=== PATIENT | female | born 1955 | race Caucasian/White ===

== ENCOUNTER 2017-02-20 17:49 | Emergency (ER) | payer MEDICARE, OTHER ==
[~2017-02-20] VITALS: Ht 162.6 cm; Wt 92.0 kg
[~2017-02-20 17:49] MED LIST: Byetta SQ; DEPA250T2 PO; DEPA500T2 OR; ENAL20TA OR; FLAG500T PO; METF750T OR; PAXI40TA OR; PLAV75TA2 OR; POTA20TA OR; SING10TA31 OR; SYNT112T OR; VENTAER INH; VYTO10TA5 OR; indapamide PO
[2017-02-20] MEDS ORDERED: INSUDET SC ×2 (18:15→21:25)
[2017-02-20] MEDS ORDERED: LABETALOL HCL 100 MG/20 ML VIAL IV STA (19:23)
[2017-02-20 19:31] LABS: BASO # 0.2 K/mm3 (0.0-0.2); BASO % 1.3 % (0.0-1.0); EOS # 0.2 K/mm3 (0.0-0.50); EOS % 2.1 % (0.0-3.0); LARGE UNSTAINED CELL # 0.2 K/mm3 (0.0-0.4); LARGE UNSTAINED CELL % 1.9 % (0.0-4.0); LYMPH # 4.2 K/mm3 (1.5-4.5); LYMPH % 35.5 % (24.0-44.0); MEAN CORPUSCULAR HEMOGLOBIN 29.9 pg (27.0-33.0); MEAN CORPUSCULAR HGB CONC 34.7 g/dl (32.0-36.5); MEAN CORPUSCULAR VOLUME 86.3 fl (80.0-96.0); MONO # 0.7 K/mm3 (0.0-0.8); MONO % 5.5 % (0.0-5.0); NEUTROPHILS # 6.4 K/mm3 (1.8-7.7); NEUTROPHILS % 53.8 % (36.0-66.0); PLATELET COUNT, AUTOMATED 320 k/mm3 (150-450); RED CELL DISTRIBUTION WIDTH 13.2 % (11.5-14.5); WHITE BLOOD COUNT 11.9 K/mm3 (4.0-10.0)
[2017-02-20 19:42] LABS: ANION GAP 7 MEQ/L (8-16); BLOOD UREA NITROGEN 8 MG/DL (7-18); CALCIUM LEVEL 8.8 MG/DL (8.8-10.2); CARBON DIOXIDE LEVEL 28 MEQ/L (21-32); CHLORIDE LEVEL 98 MEQ/L (98-107); CREATININE FOR GFR 0.68 MG/DL (0.55-1.02); GLOMERULAR FILTRATION RATE > 60.0 (>45); GLUCOSE, FASTING 167 MG/DL (80-110); POTASSIUM SERUM 3.8 MEQ/L (3.5-5.1); SODIUM LEVEL 133 MEQ/L (136-145)
--- NOTE | 2017-02-20 20:50 | REPUSA ---
CLINICAL HISTORY: Headache. TECHNIQUE: Multiple axial CT images were obtained through the brain without IV contrast material. COMMENTS: There is normal configuration of sella turcica. There are no intra or extra-axial collections. There is no mass effect or midline shift. There is no evidence of hematoma formation. No hydrocephalus is p resent. The ventricles are symmetrical. No abnormal calcifications are present. There is diffuse age-appropriate cerebellar and cerebral atrophy with proportionally dilated ventricl es and cortical sulci. Note is made of all left frontoparietal encephalomalacia compatible with old infarct. There are bilateral periventricular and subcortical white matter hypolucencies compatible with chroni c microvascular disease. Otherwise, no significant focal abnormalities are seen either in the posterior fossa or supratentoria l compartment. IMPRESSION: 1. Age-appropriate cerebellar and cerebral atrophy. 2. Chronic microvascular disease. 3 Note is made of all left frontoparietal encephalomalacia compatible with old infarct. 4. No evidence of acute intracranial pathology. Thank you for your kind referral of this patient.
[2017-02-20] MEDS ORDERED: DEPA250T2 PO (21:25)
[2017-02-20] MEDS ORDERED: METO1TAB32 PO (21:26)
[2017-02-20 22:42] VITALS: BP 150/65
[2017-02-20] MEDS ORDERED: METOPROLOL TART 25 MG TABLET PO ONE (23:00)
--- NOTE | 2017-02-21 09:07 | REP ---
LEFT FOREARM, TWO VIEWS: There is no evidence of an acute fracture, dislocation or intrinsic bone disease. IMPRESSION: No fracture or dislocation. Signed by Aba Waller MD 02/21/2017 08:16 P
--- NOTE | 2017-02-22 09:05 | ECGEPIP ---
Stationary ECG Study [facility] - ED Test Date: 2017-02-20 Pat Name: KAVYA BROWNING Department: Room: - Gender: F Home Health Aide: tk : 1955 Requested By: FABIAN Hairston Order Number: [id number] Reading MD: Sophy Knight Measurements Intervals [place] Rate: 70 P: 24 MD: 148 QRS: 6 QRSD: 81 T: 54 QT: 398 QTc: 429 Interpretive Statements SINUS RHYTHM Left ventricular hypertrophy SIMILAR 07/03/16 Electronically Signed On 02-22-2017 9:05:51 EDT by Sophy Knight
== END 2017-02-20 22:53 | disposition home or self-care (01) ==
LOC: M ED 19:01
DX: S50.12XA Contusion of left forearm, initial encounter (principal); W23.1XXA Caught, crushed, jammed, or pinched between stationary objects, initial encounter; Y92.89 Other specified places as the place of occurrence of the external cause; Y93.89 Activity, other specified; R20.2 Paresthesia of skin; I67.9 Cerebrovascular disease, unspecified; E11.9 Type 2 diabetes mellitus without complications; I10 Essential (primary) hypertension; G40.909 Epilepsy, unspecified, not intractable, without status epilepticus; F17.200 Nicotine dependence, unspecified, uncomplicated; Z79.4 Long term (current) use of insulin; Z79.899 Other long term (current) drug therapy; Z88.8 Allergy status to other drugs, medicaments and biological substances; Z91.041 Radiographic dye allergy status

== ENCOUNTER → 2017-03-17 | Outpatient (CLI) | payer MEDICARE, OTHER ==
[~2017-03-17] MED LIST changes: +INSUDET SC; +METO1TAB32 PO
--- NOTE | 2017-03-17 15:44 | REP ---
MR BRAIN WITHOUT CONTRAST: HISTORY: Nerve palsy. COMPARISON: 10/27/2012. An area of increased signal intensity on T2-weighted images is present in the left temporal and parietal lobes. There is dilatation of the overlying cortical sulci. This represents an old infarction. A small area of increased signal intensity on T2-weighted images is present in the left cerebellum. This represents and old lacunar infarction. Areas of increased signal intensity on T2-weighted images are present in the periventricular and subcortical white matter. This represents small vessel ischemic disease. There is no intraparenchymal, acute infarct, mass or midline shift. The ventricular system and cortical sulci are dilated consistent with minimal volume loss. There is no extracerebral collection. Mucosal thickening is present in the left maxillary sinus. IMPRESSION: 1. 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 2. 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 3. Small vessel ischemic disease. 4. Minimal volume loss. Signed by Nathan Yoder MD 03/17/2017 03:52 P
--- NOTE | 2017-03-17 15:45 | REP ---
MRI ORBITS WITHOUT CONTRAST: HISTORY: Nerve palsy. The globes, optic nerves and rectus muscles are normal in appearance. There is no orbital lesion. Minimal mucosal thickening is present in the left maxillary sinus. Increased signal intensity on T2-weighted images is present in the left temporal and parietal lobes. This represents an old infarction. IMPRESSION: There is no orbital lesion. Signed by Nathan Yoder MD 03/17/2017 03:52 P
== END ==
LOC: M RAD 14:04
PROVIDERS: ATTEND Optometrist
DX: I61.0 Nontraumatic intracerebral hemorrhage in hemisphere, subcortical (principal); I63.9 Cerebral infarction, unspecified; I67.9 Cerebrovascular disease, unspecified; H49.20 Sixth [abducent] nerve palsy, unspecified eye

== ENCOUNTER 2017-11-30 16:03 | Inpatient (IN) | payer MEDICARE, OTHER ==
[2017-11-30 17:03] LABS: BASO # 0.1 10^3/uL (0.0-0.2); BASO % 0.9 % (0.0-1.0); EOS # 0.5 10^3/uL (0.0-0.50); EOS % 4.6 % (0.0-3.0); HEMATOCRIT 39.8 % (36.0-47.0); HEMOGLOBIN 13.5 g/dl (12.0-16.0); IMMATURE GRANULOCYTE % 0.5 % (0-3.0); LYMPH # 4.3 10^3/uL (1.5-4.5); LYMPH % 38.3 % (24.0-44.0); MEAN CORPUSCULAR HEMOGLOBIN 28.3 pg (27.0-33.0); MEAN CORPUSCULAR HGB CONC 33.9 g/dl (32.0-36.5); MEAN CORPUSCULAR VOLUME 83.4 fl (80.0-96.0); MONO # 0.7 10^3/uL (0.0-0.8); MONO % 5.9 % (0.0-5.0); NEUTROPHILS # 5.5 10^3/uL (1.8-7.7); NEUTROPHILS % 49.8 % (36.0-66.0); PLATELET COUNT, AUTOMATED 329 10^3/uL (150-450); RED BLOOD COUNT 4.77 10^6/uL (4.00-5.40); RED CELL DISTRIBUTION WIDTH 13.4 % (11.5-14.5); WHITE BLOOD COUNT 11.1 10^3/uL (4.0-10.0)
[2017-11-30 17:14] LABS: INR 0.95; PROTHROMBIN TIME 12.8 SECONDS (12.4-14.5)
[2017-11-30 17:15] LABS: PARTIAL THROMBOPLASTIN TIME 26.4 SECONDS (26.8-37.9)
[2017-11-30 17:36] LABS: ANION GAP 7 MEQ/L (8-16); BLOOD UREA NITROGEN 10 MG/DL (7-18); CALCIUM LEVEL 8.8 MG/DL (8.8-10.2); CARBON DIOXIDE LEVEL 27 MEQ/L (21-32); CHLORIDE LEVEL 101 MEQ/L (98-107); CK-MB VALUE MASS 2.1 NG/ML (<3.6); CPK CREATINE PHOSPHOKINASE 131 U/L (26-192); CREATININE FOR GFR 0.63 MG/DL (0.55-1.30); GLOMERULAR FILTRATION RATE > 60.0 (>45); GLUCOSE, FASTING 158 MG/DL (70-100); POTASSIUM SERUM 3.9 MEQ/L (3.5-5.1); SODIUM LEVEL 135 MEQ/L (136-145); TROPONIN I < 0.02 NG/ML (< 0.10)
[2017-11-30] MEDS: hydrALAZINE INJ 20 MG/ML VIAL IV ×2 (17:43→23:53)
[2017-11-30] MEDS: ASPIRIN 325 MG TAB PO (17:43)
[2017-11-30] MEDS: FIORICET TAB PO (18:05)
[2017-11-30] MEDS: POLYVINYL ALCOHOL OPHTH SOLN 15 ML(LIQUITEARS) OD (21:00)
[2017-11-30] MEDS: HumaLOG INSULIN (NovoLOG) PER UNIT SC (21:00)
[2017-11-30] MEDS ORDERED: ACETAMINOPHEN 650MG ER TAB (TYLENOL ARTHRITIS) PO (21:45)
[2017-11-30] MEDS ORDERED: DEXTROSE 50% 50 ML SYRINGE IV (21:45)
[2017-11-30] MEDS ORDERED: zolPIDEM TARTRATE 10MG TAB PO (21:45)
[2017-11-30] MEDS ORDERED: ALBUTEROL 90 MCG/ACT 8GM HFA INHALER INH (21:45)
[2017-11-30] MEDS ORDERED: GLUCOSE 4 GM CHEW TABLET PO (21:45)
[2017-11-30] MEDS ORDERED: GLUCAGON FOR INJ 1 MG VIAL (J1610) SC (21:45)
[2017-11-30 22:09] LABS: BEDSIDE GLUCOSE 160 MG/DL (80-115)
[2017-11-30] MEDS: LEVEMIR (INSULIN DETEMIR) 1 UNITS/0.01ML SC (22:13)
[2017-11-30] MEDS: HEPARIN SOD (PORCINE) 5000 UNITS/ML VIAL SC (22:15)
[2017-11-30] MEDS: SIMVASTATIN 20 MG TAB PO (22:16)
[2017-11-30] MEDS: DIVALPROEX 250 MG TAB PO (22:16)
[2017-11-30] MEDS: EZETIMIBE 10 MG TAB (ZETIA) PO (23:17)
[2017-11-30 23:18] LABS: INR 0.98; PROTHROMBIN TIME 13.1 SECONDS (12.4-14.5)
[2017-11-30 23:19] LABS: PARTIAL THROMBOPLASTIN TIME 28.4 SECONDS (26.8-37.9)
[2017-11-30 23:20] LABS: ESTIMATED AVERAGE GLUCOSE 212 MG/DL (60-110)
[2017-11-30 23:24] LABS: C REACTIVE PROTEIN QUANTITATIV < 0.30 MG/DL (0.00-0.30)
[2017-11-30] MEDS: ENALAPRIL MALEATE 10 MG TAB PO (23:24)
[2017-11-30 23:28] LABS: CPK CREATINE PHOSPHOKINASE 146 U/L (26-192); FREE THYROXINE INDEX 3.8 % (1.3-4.8); T UPTAKE 34 % (30-39); THYROXINE (T4) 11.3 UG/DL (4.5-12.0); TROPONIN I < 0.02 NG/ML (< 0.10)
[2017-11-30 23:34] LABS: CK-MB VALUE MASS 2.1 NG/ML (<3.6); MB/CK RELATIVE INDEX 1.43 (< OR =4)
[2017-12-01 00:03] LABS: ERYTHROCYTE SEDIMENTATION RATE 7 mm/hr (0-30)
[2017-12-01] MEDS: KETOROLAC 30 MG/ML VIAL (J1885) IV (01:48)
[2017-12-01 03:45] LABS: HEMATOCRIT 34.6 % (36.0-47.0); HEMOGLOBIN 11.9 g/dl (12.0-16.0); MEAN CORPUSCULAR HEMOGLOBIN 28.8 pg (27.0-33.0); MEAN CORPUSCULAR HGB CONC 34.4 g/dl (32.0-36.5); MEAN CORPUSCULAR VOLUME 83.8 fl (80.0-96.0); PLATELET COUNT, AUTOMATED 253 10^3/uL (150-450); RED BLOOD COUNT 4.13 10^6/uL (4.00-5.40); RED CELL DISTRIBUTION WIDTH 13.4 % (11.5-14.5); WHITE BLOOD COUNT 10.1 10^3/uL (4.0-10.0)
[2017-12-01 04:13] LABS: ALKALINE PHOSPHATASE 53 U/L (45-117); ALT/SGPT 71 U/L (12-78); ANION GAP 8 MEQ/L (8-16); AST/SGOT 46 U/L (7-37); BILIRUBIN,TOTAL 0.3 MG/DL (0.2-1.0); BLOOD UREA NITROGEN 12 MG/DL (7-18); CALCIUM LEVEL 8.4 MG/DL (8.8-10.2); CARBON DIOXIDE LEVEL 28 MEQ/L (21-32); CHLORIDE LEVEL 101 MEQ/L (98-107); CHOLESTEROL LEVEL 146 MG/DL (<200); CHOLESTEROL RISK RATIO 4.424 (<5); CPK CREATINE PHOSPHOKINASE 149 U/L (26-192); CREATININE FOR GFR 0.69 MG/DL (0.55-1.30); GLOMERULAR FILTRATION RATE > 60.0 (>45); GLUCOSE, FASTING 218 MG/DL (70-100); HDL CHOLESTEROL 33 MG/DL (>40); MB/CK RELATIVE INDEX 1.34 (< OR =4); NON-HDL-C 113 MG/DL; POTASSIUM SERUM 3.8 MEQ/L (3.5-5.1); SODIUM LEVEL 137 MEQ/L (136-145); TRIGLYCERIDES LEVEL 240 MG/DL (<150); TROPONIN I < 0.02 NG/ML (< 0.10)
[2017-12-01] MEDS: hydrALAZINE INJ 20 MG/ML VIAL IV ×3 (06:00→17:49)
[2017-12-01] MEDS: LEVOTHYROXINE 125MCG TABLET (0.125MG) PO (07:57)
[2017-12-01] MEDS ORDERED: LEVOTHYROXINE 125MCG TABLET (0.125MG) PO (09:00)
[2017-12-01] MEDS ORDERED: ENALAPRIL MALEATE 10 MG TAB PO (09:00)
[2017-12-01] MEDS ORDERED: METOPROLOL SUCC *XL* 25MG TAB (TopROL *XL*) PO (09:00)
[2017-12-01] MEDS: HumaLOG INSULIN (NovoLOG) PER UNIT SC ×4 (09:05→20:17)
[2017-12-01] MEDS: HEPARIN SOD (PORCINE) 5000 UNITS/ML VIAL SC ×2 (09:06→20:22)
[2017-12-01] MEDS: METOPROLOL SUCC *XL* 25MG TAB (TopROL *XL*) PO ×2 (09:06→20:11)
[2017-12-01] MEDS: LEVEMIR (INSULIN DETEMIR) 1 UNITS/0.01ML SC ×2 (09:06→20:23)
[2017-12-01] MEDS: MONTELUKAST 10 MG TAB PO (09:06)
[2017-12-01] MEDS: DIVALPROEX 250 MG TAB PO ×2 (09:07→20:08)
[2017-12-01] MEDS: CLOPIDOGREL 75 MG TAB PO (09:07)
[2017-12-01] MEDS: ENALAPRIL MALEATE 10 MG TAB PO ×2 (09:07→20:11)
[2017-12-01] MEDS: PARoxetine 20 MG TAB PO (09:07)
[2017-12-01] MEDS: POLYVINYL ALCOHOL OPHTH SOLN 15 ML(LIQUITEARS) OD ×4 (09:08→20:14)
[2017-12-01 12:46] LABS: BEDSIDE GLUCOSE 174 MG/DL (80-115)
[2017-12-01 12:46] LABS: BEDSIDE GLUCOSE 216 MG/DL (80-115)
[2017-12-01] MEDS: ACETAMINOPHEN 650MG ER TAB (TYLENOL ARTHRITIS) PO (16:04)
[2017-12-01 17:26] LABS: BEDSIDE GLUCOSE 170 MG/DL (80-115)
[2017-12-01] MEDS: SIMVASTATIN 20 MG TAB PO (17:40)
[2017-12-01] MEDS: predniSONE 20 MG TAB PO (20:07)
[2017-12-01] MEDS: valACYclovir HCL 500 MG TAB PO (20:08)
[2017-12-01] MEDS: EZETIMIBE 10 MG TAB (ZETIA) PO (20:14)
[2017-12-01 20:35] LABS: BEDSIDE GLUCOSE 175 MG/DL (80-115)
[2017-12-06 10:25] LABS: PTT LUPUS TYPE ANTICOAG SCREEN 0.9 (0-1.2)
== END 2017-12-01 21:09 | disposition home or self-care (01) | DRG 74 ==
LOC: M ED 21:09 → M ED INP 21:45 → M ED 16:03 → M ED INP 21:45
DX: G51.0 Bell's palsy (principal); G40.509 Epileptic seizures related to external causes, not intractable, without status epilepticus; I16.0 Hypertensive urgency; E11.9 Type 2 diabetes mellitus without complications; Z79.4 Long term (current) use of insulin; Z86.73 Personal history of transient ischemic attack (TIA), and cerebral infarction without residual deficits; F41.9 Anxiety disorder, unspecified; F32.9 Major depressive disorder, single episode, unspecified; E03.9 Hypothyroidism, unspecified; J45.909 Unspecified asthma, uncomplicated; E66.9 Obesity, unspecified; Z79.899 Other long term (current) drug therapy; Z88.5 Allergy status to narcotic agent; Z91.041 Radiographic dye allergy status; Z88.8 Allergy status to other drugs, medicaments and biological substances; I25.10 Atherosclerotic heart disease of native coronary artery without angina pectoris; F17.210 Nicotine dependence, cigarettes, uncomplicated

== ENCOUNTER 2019-11-17 22:55 | Emergency (ER) | payer MEDICARE, OTHER ==
[~2019-11-17 22:55] MED LIST changes: +AMBI10TA PO; +ASPI325T57 PO; +Artificial Tears OD; +DIVA250T67 PO; -ENAL20TA OR; +ENAL20TA PO; +EZET1TAB4 PO; +KLOR20TA42 PO; +LEVO125T41 PO; +METF500T13 PO; -PAXI40TA OR; +PAXI40TA PO; +PRED50TA PO; -SING10TA31 OR; +SING10TA31 PO; +TYLE650T35 PO; +VALA1TAB5 PO
--- NOTE | 2019-11-18 00:31 | REPVR ---
PROCEDURE INFORMATION: Exam: CT Head Without Contrast Exam date and time: 11/17/2019 12:11 AM Age: 64 years old Clinical indication: Altered mental status/memory loss TECHNIQUE: Imaging protocol: Computed tomography of the head without contrast. Radiation optimization: All CT scans at this facility use at least one of these dose optimization techniques: automated exposure control; mA and/or kV adjustment per patient size (includes targeted exams where dose is matched to clinical indication); or iterative reconstruction. COMPARISON: CT Head without contrast 11/30/2017 4:28 PM FINDINGS: Brain: Encephalomalacia in the left frontal parietal lobe. No acute mass effect. No midline shift. No acute intracranial hemorrhage. Ventricles: Normal. No ventriculomegaly. Bones/joints: Unremarkable. No acute fracture. Sinuses: Visualized sinuses are unremarkable. No fluid levels. Mastoid air cells: Visualized mastoid air cells are well aerated. Soft tissues: Unremarkable. IMPRESSION: 1. Encephalomalacia in the left frontal parietal lobe. 2. No acute findings. Electronically signed by: Nayana Kang On 11/18/2019 00:30:37 AM
--- NOTE | 2019-11-18 00:31 | REPVR ---
PROCEDURE INFORMATION: Exam: CT Cervical Spine Without Contrast Exam date and time: 11/17/2019 12:11 AM Age: 64 years old Clinical indication: Other: AMS; Additional info: Altered mental status TECHNIQUE: Imaging protocol: Computed tomography images of the cervical spine without contrast. Radiation optimization: All CT scans at this facility use at least one of these dose optimization techniques: automated exposure control; mA and/or kV adjustment per patient size (includes targeted exams where dose is matched to clinical indication); or iterative reconstruction. COMPARISON: No relevant prior studies available. FINDINGS: Limitations: Limited evaluation of the spinal canal. Vertebrae: No acute fracture. No subluxation. Mild kyphosis of the spine. Diffuse facet arthropathy. Multilevel mild anterior marginal osteophytes. C1-C2: Joint space narrowing and marginal osteophytes changes at the atlantoodontoid joint. C2-C3: No disc herniation. No spinal canal stenosis. C3-C4: Limited evaluation of the spinal canal. C4-C5: Suspect 4 mm disc osteophyte complex. C5-C6: Limited evaluation of the spinal canal. C6-C7: Limited evaluation of the spinal canal. Moderate right neural foraminal narrowing. Moderate left neural foraminal narrowing. C7-T1: Limited evaluation of the spinal canal. Severe right neural foraminal narrowing. Mild left neural foraminal narrowing. Soft tissues: Unremarkable. Vasculature: Mild atherosclerotic disease at the origin of the internal carotid arteries bilaterally. Lungs: Lung apices are normal. IMPRESSION: 1. Limited evaluation. 2. No acute fracture. 3. Degenerative changes as described. Electronically signed by: Nayana Kang On 11/18/2019 00:30:44 AM
[2019-11-18] MEDS ORDERED: VALPROATE SOD INJ 500 MG in D5W 50 ML IV ONE (01:15)
[2019-11-18 01:32] LABS: BASO # 0.1 10^3/uL (0.0-0.2); BASO % 0.8 % (0.0-1.0); EOS # 0.2 10^3/uL (0.0-0.5); EOS % 1.3 % (0.0-3.0); HEMATOCRIT 41.8 % (36.0-47.0); LYMPH # 3.6 10^3/uL (1.5-5.0); LYMPH % 25.8 % (24.0-44.0); MEAN CORPUSCULAR HEMOGLOBIN 28.7 pg (27.0-33.0); MEAN CORPUSCULAR HGB CONC 33.5 g/dl (32.0-36.5); MEAN CORPUSCULAR VOLUME 85.7 fl (80.0-96.0); NEUTROPHILS # 9.1 10^3/uL (1.5-8.5); NEUTROPHILS % 64.2 % (36.0-66.0); PLATELET COUNT, AUTOMATED 379 10^3/uL (150-450); RED BLOOD COUNT 4.88 10^6/uL (4.00-5.40); WHITE BLOOD COUNT 14.1 10^3/uL (4.0-10.0)
[2019-11-18 01:59] LABS: AMPHETAMINES LEVEL URINE NEGATIVE (NEGATIVE); BARBITURATES URINE NEGATIVE (NEGATIVE); BENZODIAZEPINES URINE NEGATIVE (NEGATIVE); CANNABINOIDS URINE POSITIVE (NEGATIVE); COCAINE METABOLITE URINE NEGATIVE (NEGATIVE); METHADONE URINE NEGATIVE (NEGATIVE); OPIATES URINE NEGATIVE (NEGATIVE); PHENCYCLIDINE URINE NEGATIVE (NEGATIVE)
[2019-11-18 02:04] LABS: ACETAMINOPHEN LEVEL < 2.0 UG/ML (10.0-30.0); ALBUMIN 3.6 GM/DL (3.2-5.2); ALT/SGPT 85 U/L (12-78); BILIRUBIN,DIRECT < 0.1 MG/DL (0.0-0.2); BILIRUBIN,TOTAL 0.3 MG/DL (0.2-1.0); BLOOD UREA NITROGEN 8 MG/DL (7-18); CALCIUM LEVEL 8.6 MG/DL (8.8-10.2); CARBON DIOXIDE LEVEL 22 MEQ/L (21-32); CHLORIDE LEVEL 98 MEQ/L (98-107); CK-MB VALUE MASS 3.3 NG/ML (<3.6); CPK CREATINE PHOSPHOKINASE 260 U/L (26-192); CREATININE FOR GFR 0.66 MG/DL (0.55-1.30); ETHYL ALCOHOL (ETHANOL) 0.047 % (0.000-0.010); GLOMERULAR FILTRATION RATE > 60.0 (>45); GLUCOSE, FASTING 215 MG/DL (70-100); MB/CK RELATIVE INDEX 1.27 (< OR =4); POTASSIUM SERUM 4.5 MEQ/L (3.5-5.1); SALICYLATE LEVEL < 1.7 MG/DL (5.0-30.0); SODIUM LEVEL 131 MEQ/L (136-145); THYROID STIMULATING HORMONE 0.837 uIU/ML (0.358-3.740); TOTAL PROTEIN 7.1 GM/DL (6.4-8.2); TROPONIN I < 0.02 NG/ML (< 0.10)
[2019-11-18 02:31] VITALS: BP 155/76
--- NOTE | 2019-11-18 14:45 | ED PDOC ---
Post-Departure Follow-Up dr tila reddy faxed formal report of ct c spine for fu Nico Erwin MD Nov 18, 2019 14:45
--- NOTE | 2019-11-19 07:21 | ECGEPIP ---
[facility] - ED Test Date: 2019-11-18 Pat Name: KAVYA BROWNING Department: Room: - Gender: Female Piece Hand: gianna : 1955 Requested By: FABIAN Hairston Order Number: [id number] Reading MD: Sophy Knight Measurements Intervals [place] Rate: 74 P: 39 [place]: 156 QRS: 21 QRSD: 88 T: 78 QT: 409 QTc: 455 Interpretive Statements SINUS RHYTHM NONSPECIFIC T-WAVE ABNORMALITY INCREASED RATE 11/30/17 Electronically Signed on 11-19-2019 7:20:49 EDT by Sophy Knight
== END 2019-11-18 03:19 | disposition home or self-care (01) ==
LOC: M ED 22:55
DX: G40.909 Epilepsy, unspecified, not intractable, without status epilepticus (principal); G93.89 Other specified disorders of brain; R94.31 Abnormal electrocardiogram [ECG] [EKG]; M25.78 Osteophyte, vertebrae; M48.02 Spinal stenosis, cervical region; Z86.73 Personal history of transient ischemic attack (TIA), and cerebral infarction without residual deficits; F17.210 Nicotine dependence, cigarettes, uncomplicated; Z88.6 Allergy status to analgesic agent; Z91.041 Radiographic dye allergy status; Z79.51 Long term (current) use of inhaled steroids; Z79.899 Other long term (current) drug therapy
CPT/HCPCS: 70450; 72125; 80048; 80076; 80307; 82550; 82553; 83605; 84443; 84484; 85025; 93005; 93041; 94760; 96365; 99285; G0480

== ENCOUNTER 2022-01-07 19:30 | Inpatient (IN) | payer MEDICARE ==
[~2022-01-07] VITALS: Ht 162.6 cm; Wt 90.9 kg
[~2022-01-07 19:30] MED LIST changes: +ACET650T61 PO; -EZET1TAB4 PO; +EZET1TAB96 PO; -KLOR20TA42 PO; +POTA-141 PO; -TYLE650T35 PO
[2022-01-07] MEDS ORDERED: PARO20TA3 (19:59)
[2022-01-07] MEDS ORDERED: POTA-151 (19:59)
[2022-01-07] MEDS ORDERED: TRES1INJ PO (19:59)
[2022-01-07] MEDS ORDERED: PRAV10TA3 (19:59)
[2022-01-07] MEDS ORDERED: VALPROATE SOD INJ 500 MG, VIAL MATE ADAPTER 1 EACH in D5W 50 ML IV ONE (20:15)
[2022-01-07 20:19] LABS: BASO # 0.1 10^3/uL (0.0-0.2); BASO % 0.9 % (0.0-1.0); EOS # 0.4 10^3/uL (0.0-0.5); EOS % 2.9 % (0.0-3.0); HEMATOCRIT 41.6 % (36.0-47.0); HEMOGLOBIN 14.2 g/dl (12.0-15.5); LYMPH # 2.7 10^3/uL (1.5-5.0); LYMPH % 20.8 % (24.0-44.0); MEAN CORPUSCULAR HGB CONC 34.1 g/dl (32.0-36.5); MEAN CORPUSCULAR VOLUME 84.9 fl (80.0-96.0); MONO # 0.8 10^3/uL (0.0-0.8); NEUTROPHILS # 8.9 10^3/uL (1.5-8.5); NEUTROPHILS % 68.7 % (36.0-66.0); WHITE BLOOD COUNT 12.9 10^3/uL (4.0-10.0)
[2022-01-07 20:48] LABS: CK-MB VALUE MASS 1.7 NG/ML (<3.6); MB/CK RELATIVE INDEX 1.02 (< OR =4)
[2022-01-07 20:58] LABS: ACETAMINOPHEN LEVEL < 2.0 UG/ML (10.0-30.0); ALBUMIN 3.9 GM/DL (3.2-5.2); ALT/SGPT 59 U/L (12-78); BILIRUBIN,DIRECT 0.1 MG/DL (0.0-0.2); BILIRUBIN,TOTAL 0.4 MG/DL (0.2-1.0); BLOOD UREA NITROGEN 18 MG/DL (7-18); CALCIUM LEVEL 9.6 MG/DL (8.8-10.2); CARBON DIOXIDE LEVEL 27 MEQ/L (21-32); CHLORIDE LEVEL 99 MEQ/L (98-107); CREATININE FOR GFR 0.87 MG/DL (0.55-1.30); ETHYL ALCOHOL (ETHANOL) < 0.003 % (0.000-0.010); GLOMERULAR FILTRATION RATE > 60.0 (>45); GLUCOSE, FASTING 325 MG/DL (70-100); POTASSIUM SERUM 4.1 MEQ/L (3.5-5.1); SALICYLATE LEVEL < 1.7 MG/DL (5.0-30.0); SODIUM LEVEL 132 MEQ/L (136-145); TOTAL PROTEIN 7.4 GM/DL (6.4-8.2); VALPROIC ACID (DEPAKOTE) < 3.0 UG/ML (50.0-100.0)
[2022-01-07] MEDS ORDERED: METOPROLOL SUCC *XL* 25MG TAB (TopROL *XL*) PO ONE (21:30)
[2022-01-07] MEDS ORDERED: ENALAPRIL MALEATE 10 MG TAB PO ONE (21:30)
[2022-01-07 22:17] LABS: FREE T4 0.94 NG/DL (0.76-1.46)
[2022-01-07 22:56] LABS: CK-MB VALUE MASS 1.8 NG/ML (<3.6); MB/CK RELATIVE INDEX 0.9 (< OR =4)
[2022-01-07 23:01] LABS: RSV AMPLIFICATION NEGATIVE (NEGATIVE)
[2022-01-08] MEDS ORDERED: ACETAMINOPHEN TAB 650MG DOSE (2X325MG) PO PRN (00:35)
[2022-01-08] MEDS ORDERED: LABETALOL 100MG/20ML VIAL IV PRN (01:25)
[2022-01-08] MEDS ORDERED: MONT10TA97 PO (01:53)
[2022-01-08] MEDS ORDERED: PRAV10TA3 PO (01:53)
[2022-01-08] MEDS ORDERED: POLYOPD OU (01:53)
[2022-01-08] MEDS ORDERED: PARO1TAB33 PO (01:53)
[2022-01-08] MEDS ORDERED: ASPI-161 PO (01:53)
[2022-01-08] MEDS ORDERED: ALBU8.5H INH (01:53)
[2022-01-08] MEDS ORDERED: POTA-151 PO (01:53)
[2022-01-08] MEDS ORDERED: ENAL20TA11 PO (01:53)
[2022-01-08] MEDS ORDERED: METO1TAB87 PO (01:53)
[2022-01-08] MEDS ORDERED: HOME MED LIST COMPLETE! XX SCH (01:55)
[2022-01-08] MEDS ORDERED: POLYVINYL ALCOHOL OPHTH SOLN 15 ML(LIQUITEARS) OU PRN (02:20)
[2022-01-08] MEDS ORDERED: ALBUTEROL 90 MCG/ACT 8GM HFA INHALER INH PRN (02:20)
[2022-01-08] MEDS: LEVOTHYROXINE 125MCG TABLET (0.125MG) PO SCH (06:39)
[2022-01-08] MEDS ORDERED: DEXTROSE 50% 50 ML SYRINGE IV PRN (07:20)
[2022-01-08] MEDS ORDERED: GLUCOSE 4GM CHEW TABLET PO PRN (07:20)
[2022-01-08] MEDS ORDERED: GLUCAGON INJ 1MG VIAL SC PRN (07:20)
[2022-01-08 08:27] LABS: HEMATOCRIT 37.5 % (36.0-47.0); HEMOGLOBIN 12.7 g/dl (12.0-15.5); MEAN CORPUSCULAR HEMOGLOBIN 28.5 pg (27.0-33.0); MEAN CORPUSCULAR HGB CONC 33.9 g/dl (32.0-36.5); MEAN CORPUSCULAR VOLUME 84.3 fl (80.0-96.0); PLATELET COUNT, AUTOMATED 376 10^3/uL (150-450); RED BLOOD COUNT 4.45 10^6/uL (4.00-5.40); WHITE BLOOD COUNT 12.8 10^3/uL (4.0-10.0)
[2022-01-08 08:41] LABS: INR 1.05; PROTHROMBIN TIME 14.1 SECONDS (12.7-14.5)
[2022-01-08 08:42] LABS: PARTIAL THROMBOPLASTIN TIME 29.7 SECONDS (25.9-37.0)
[2022-01-08 08:50] LABS: BLOOD UREA NITROGEN 13 MG/DL (7-18); CARBON DIOXIDE LEVEL 27 MEQ/L (21-32); CHLORIDE LEVEL 102 MEQ/L (98-107); GLOMERULAR FILTRATION RATE > 60.0 (>45); GLUCOSE, FASTING 152 MG/DL (70-100); POTASSIUM SERUM 3.5 MEQ/L (3.5-5.1); SODIUM LEVEL 137 MEQ/L (136-145)
[2022-01-08 08:56] LABS: CK-MB VALUE MASS 3.2 NG/ML (<3.6); MB/CK RELATIVE INDEX 1.12 (< OR =4)
[2022-01-08] MEDS: ENALAPRIL MALEATE 10 MG TAB PO SCH (09:00)
[2022-01-08] MEDS: ENOXAPARIN 40MG/0.4ML SYRINGE (J1650 PER 10MG) SC SCH (09:44)
[2022-01-08] MEDS: POTASSIUM CHLORIDE 10MEQ SR TABLET PO SCH ×2 (09:45→21:28)
[2022-01-08] MEDS: PARoxetine 20MG TABLET PO SCH (09:45)
[2022-01-08] MEDS: DIVALPROEX 250 MG TAB PO SCH ×2 (09:45→21:28)
[2022-01-08] MEDS: METOPROLOL TART 25 MG TABLET PO SCH ×2 (09:46→21:29)
[2022-01-08] MEDS: HumaLOG INSULIN (NovoLOG) PER UNIT SC SCH ×3 (09:46→17:26)
[2022-01-08] MEDS: LEVEMIR (INSULIN DETEMIR) 1 UNITS/0.01ML SC SCH ×2 (09:48→21:27)
[2022-01-08 16:19] VITALS: BP 141/67
[2022-01-08 20:00] VITALS: BP 133/68
[2022-01-08] MEDS ORDERED: MONTELUKAST 10 MG TAB PO SCH (21:00)
[2022-01-08] MEDS ORDERED: ASPIRIN 81MG ENTERIC TABLET PO SCH (21:00)
[2022-01-08] MEDS ORDERED: HumaLOG INSULIN (NovoLOG) PER UNIT SC SCH (21:00)
[2022-01-08] MEDS ORDERED: PRAVASTATIN 10 MG TAB PO SCH (21:00)
[2022-01-08 21:29] VITALS: BP 133/68
[2022-01-09] VITALS: BP 160/78
[2022-01-09 04:00] VITALS: BP 163/74
[2022-01-09] MEDS: HumaLOG INSULIN (NovoLOG) PER UNIT SC SCH ×2 (06:15→11:39)
[2022-01-09] MEDS: LEVOTHYROXINE 125MCG TABLET (0.125MG) PO SCH (06:15)
[2022-01-09 06:17] LABS: HEMATOCRIT 38.5 % (36.0-47.0); HEMOGLOBIN 12.9 g/dl (12.0-15.5); MEAN CORPUSCULAR HEMOGLOBIN 28.7 pg (27.0-33.0); MEAN CORPUSCULAR HGB CONC 33.5 g/dl (32.0-36.5); MEAN CORPUSCULAR VOLUME 85.6 fl (80.0-96.0); PLATELET COUNT, AUTOMATED 401 10^3/uL (150-450); WHITE BLOOD COUNT 12.2 10^3/uL (4.0-10.0)
[2022-01-09 06:44] LABS: ALT/SGPT 48 U/L (12-78); BILIRUBIN,TOTAL 0.4 MG/DL (0.2-1.0); BLOOD UREA NITROGEN 13 MG/DL (7-18); CALCIUM LEVEL 9.2 MG/DL (8.8-10.2); CARBON DIOXIDE LEVEL 28 MEQ/L (21-32); CHLORIDE LEVEL 105 MEQ/L (98-107); CREATININE FOR GFR 0.53 MG/DL (0.55-1.30); GLOMERULAR FILTRATION RATE > 60.0 (>45); GLUCOSE, FASTING 144 MG/DL (70-100); POTASSIUM SERUM 4.4 MEQ/L (3.5-5.1); SODIUM LEVEL 139 MEQ/L (136-145); TOTAL PROTEIN 6.2 GM/DL (6.4-8.2)
[2022-01-09 07:39] VITALS: BP 154/68
[2022-01-09] MEDS: POTASSIUM CHLORIDE 10MEQ SR TABLET PO SCH (08:25)
[2022-01-09] MEDS: LEVEMIR (INSULIN DETEMIR) 1 UNITS/0.01ML SC SCH (08:25)
[2022-01-09] MEDS: DIVALPROEX 250 MG TAB PO SCH (08:26)
[2022-01-09] MEDS: ENALAPRIL MALEATE 10 MG TAB PO SCH (08:26)
[2022-01-09] MEDS: METOPROLOL TART 25 MG TABLET PO SCH (08:26)
[2022-01-09] MEDS: PARoxetine 20MG TABLET PO SCH (08:26)
[2022-01-09] MEDS: ENOXAPARIN 40MG/0.4ML SYRINGE (J1650 PER 10MG) SC SCH (08:27)
[2022-01-09 09:17] LABS: VALPROIC ACID (DEPAKOTE) 29.5 UG/ML (50.0-100.0)
[2022-01-09 10:18] LABS: MB/CK RELATIVE INDEX 1.1 (< OR =4)
[2022-01-09] MEDS ORDERED: ENAL20TA11 PO (10:59)
[2022-01-09] MEDS ORDERED: DIVA250T67 PO (10:59)
[2022-01-09] MEDS ORDERED: LEVO137T2 PO (10:59)
[2022-01-09] MEDS ORDERED: VALPROIC ACID 250MG CAP PO ONE (13:00)
[2022-01-10] MEDS ORDERED: ENALAPRIL MALEATE 10 MG TAB PO SCH (09:00)
== END 2022-01-09 12:11 | disposition home or self-care (01) | DRG 101 ==
LOC: EDBD 19:30 → M ED 19:30 → M ED INP 23:55 → ENRESERV 01-08 15:10 → M PCU 01-08 16:16
PROVIDERS: ADMIT Family Medicine; ATTEND Family Medicine
DX: G40.909 Epilepsy, unspecified, not intractable, without status epilepticus (principal); I16.1 Hypertensive emergency; Z86.73 Personal history of transient ischemic attack (TIA), and cerebral infarction without residual deficits; E11.9 Type 2 diabetes mellitus without complications; I10 Essential (primary) hypertension; F32.A Depression, unspecified; F41.9 Anxiety disorder, unspecified; E03.9 Hypothyroidism, unspecified; M19.90 Unspecified osteoarthritis, unspecified site; M06.9 Rheumatoid arthritis, unspecified; Z90.79 Acquired absence of other genital organ(s); E87.6 Hypokalemia; J45.909 Unspecified asthma, uncomplicated; Z20.822 Contact with and (suspected) exposure to COVID-19; Z91.14 Patient's other noncompliance with medication regimen; R41.82 Altered mental status, unspecified; R55 Syncope and collapse; F17.210 Nicotine dependence, cigarettes, uncomplicated; Z79.82 Long term (current) use of aspirin; Z79.4 Long term (current) use of insulin; Z79.899 Other long term (current) drug therapy; Z88.8 Allergy status to other drugs, medicaments and biological substances; Z91.041 Radiographic dye allergy status; D72.829 Elevated white blood cell count, unspecified

== ENCOUNTER → 2022-01-26 | Outpatient (CLI) | payer MEDICARE ==
[~2022-01-26] MED LIST changes: +ALBU8.5H INH; +ASPI-161 PO; +ENAL20TA11 PO; +LEVO137T2 PO; +METO1TAB87 PO; +MONT10TA97 PO; +PARO1TAB33 PO; +PARO20TA3; +POLYOPD OU; +POTA-151; +POTA-151 PO; +PRAV10TA3; +PRAV10TA3 PO; +TRES1INJ PO
[2022-01-26 16:21] LABS: POTASSIUM SERUM 4.4 MEQ/L (3.5-5.1)
== END ==
LOC: M WUC 11:40
PROVIDERS: ATTEND Family Medicine
DX: E87.1 Hypo-osmolality and hyponatremia (principal); E11.9 Type 2 diabetes mellitus without complications; I10 Essential (primary) hypertension

== ENCOUNTER 2023-02-20 21:52 | Emergency (ER) | payer MEDICARE ==
[~2023-02-20] VITALS: Ht 162.6 cm; Wt 95.0 kg
[~2023-02-20 21:52] MED LIST changes: +ARTIDRO4 OU; +ENAL1TAB52 PO; -ENAL20TA11 PO; -POLYOPD OU
[2023-02-20 22:14] LABS: BASO # 0.1 10^3/uL (0.0-0.2); BASO % 0.9 % (0.0-1.0); EOS # 0.3 10^3/uL (0.0-0.5); EOS % 2.1 % (0.0-3.0); HEMATOCRIT 41.5 % (36.0-47.0); LYMPH # 4.4 10^3/uL (1.5-5.0); LYMPH % 31.9 % (24.0-44.0); MEAN CORPUSCULAR HEMOGLOBIN 28.5 pg (27.0-33.0); MEAN CORPUSCULAR HGB CONC 33.7 g/dl (32.0-36.5); MEAN CORPUSCULAR VOLUME 84.3 fl (80.0-96.0); MONO # 0.8 10^3/uL (0.0-0.8); MONO % 5.9 % (2.0-8.0); NEUTROPHILS # 8.1 10^3/uL (1.5-8.5); NEUTROPHILS % 58.7 % (36.0-66.0); PLATELET COUNT, AUTOMATED 403 10^3/uL (150-450); RED BLOOD COUNT 4.92 10^6/uL (4.00-5.40); WHITE BLOOD COUNT 13.8 10^3/uL (4.0-10.0)
[2023-02-20] MEDS ORDERED: ASPIRIN 81MG CHEW TABLET PO ONE (22:20)
[2023-02-20] MEDS: NITROGLYCERIN 0.4MG SUBL TABLET SL PRN ×3 (22:40→23:49)
[2023-02-20 22:45] LABS: D-DIMER QUANT 597.52 ng/ml (<500)
[2023-02-20 22:47] LABS: CPK CREATINE PHOSPHOKINASE 217 U/L (34-145)
[2023-02-20 22:50] LABS: BLOOD UREA NITROGEN 10 MG/DL (9-23); CARBON DIOXIDE LEVEL 26 MMOL/L (20-31); CHLORIDE LEVEL 98 MMOL/L (98-107); CK-MB VALUE MASS 7.7 NG/ML (<3.6); CREATININE FOR GFR 0.61 MG/DL (0.55-1.30); GLOMERULAR FILTRATION RATE > 60.0 (>45); GLUCOSE, FASTING 317 MG/DL (74-106); MB/CK RELATIVE INDEX 3.54 (< OR =4); POTASSIUM SERUM 4.6 MMOL/L (3.5-5.1); SODIUM LEVEL 131 MMOL/L (136-145)
[2023-02-20] MEDS: diphenhydrAMINE 50MG/ML VIAL IV STA ×2 (22:52→23:03)
[2023-02-20] MEDS: methylPREDNISolone 125MG 2ML VIAL IV ONE ×2 (22:55→23:03)
[2023-02-20] MEDS ORDERED: ISOVUE-370 76% 100ML VIAL As Ordered ONE (23:01)
[2023-02-20 23:04] LABS: CALCIUM LEVEL 9.1 MG/DL (8.3-10.6)
[2023-02-20] MEDS ORDERED: HEPARIN SOD (PORCINE) 5000UNITS/ML 1ML VIAL/SYRINGE IV ONE (23:20)
[2023-02-20 23:24] LABS: PARTIAL THROMBOPLASTIN TIME 27.1 SECONDS (24.8-34.2); PROTHROMBIN TIME 13.4 SECONDS (12.5-14.5)
[2023-02-20 23:51] LABS: CK-MB VALUE MASS 11.5 NG/ML (<3.6)
[2023-02-20 23:55] VITALS: BP 160/90; TEMP 98.1; O2SAT 98
[2023-02-20 23:55] LABS: MB/CK RELATIVE INDEX 4.12 (< OR =4)
[2023-02-21] MEDS ORDERED: HEPARIN DRIP 25,000 UNITS in IV 1 EA IV SCH ×2
== END 2023-02-21 00:17 | disposition short-term general hospital (02) ==
LOC: M ED 21:52
DX: I21.4 Non-ST elevation (NSTEMI) myocardial infarction (principal); R00.1 Bradycardia, unspecified; I42.2 Other hypertrophic cardiomyopathy; E11.9 Type 2 diabetes mellitus without complications; I10 Essential (primary) hypertension; E03.9 Hypothyroidism, unspecified; F17.200 Nicotine dependence, unspecified, uncomplicated; Z91.041 Radiographic dye allergy status; Z88.8 Allergy status to other drugs, medicaments and biological substances; Z79.52 Long term (current) use of systemic steroids; Z79.4 Long term (current) use of insulin; Z79.899 Other long term (current) drug therapy

== ENCOUNTER → 2023-03-07 | Outpatient (REF) | payer MEDICARE ==
[2023-03-07 13:50] LABS: HEMATOCRIT 33.4 % (36.0-47.0); HEMOGLOBIN 10.8 g/dl (12.0-15.5); MEAN CORPUSCULAR HEMOGLOBIN 28.3 pg (27.0-33.0); MEAN CORPUSCULAR HGB CONC 32.3 g/dl (32.0-36.5); MEAN CORPUSCULAR VOLUME 87.7 fl (80.0-96.0); PLATELET COUNT, AUTOMATED 612 10^3/uL (150-450); RED BLOOD COUNT 3.81 10^6/uL (4.00-5.40); WHITE BLOOD COUNT 18.8 10^3/uL (4.0-10.0)
== END ==
LOC: M SHH 13:32
PROVIDERS: ATTEND Physician Assistant
DX: I25.118 Atherosclerotic heart disease of native coronary artery with other forms of angina pectoris (principal)

== ENCOUNTER 2023-03-12 17:20 | Inpatient (IN) | payer MEDICARE ==
[~2023-03-12] VITALS: Ht 165.1 cm; Wt 90.2 kg
[~2023-03-12 17:20] MED LIST changes: -TRES1INJ PO; +TRES1INJ SUBQ
[2023-03-12] MEDS ORDERED: ELIQ2.5T PO (17:32)
[2023-03-12 18:38] LABS: BASO # 0.1 10^3/uL (0.0-0.2); BASO % 0.9 % (0.0-1.0); EOS # 1.6 10^3/uL (0.0-0.5); EOS % 11.4 % (0.0-3.0); HEMATOCRIT 32.8 % (36.0-47.0); HEMOGLOBIN 10.7 g/dl (12.0-15.5); LYMPH % 28.3 % (24.0-44.0); MEAN CORPUSCULAR HGB CONC 32.6 g/dl (32.0-36.5); MEAN CORPUSCULAR VOLUME 85.9 fl (80.0-96.0); MONO # 1.2 10^3/uL (0.0-0.8); MONO % 8.6 % (2.0-8.0); NEUTROPHILS # 7.1 10^3/uL (1.5-8.5); NEUTROPHILS % 50.2 % (36.0-66.0); PLATELET COUNT, AUTOMATED 552 10^3/uL (150-450); RED BLOOD COUNT 3.82 10^6/uL (4.00-5.40); WHITE BLOOD COUNT 14.1 10^3/uL (4.0-10.0)
[2023-03-12 19:04] LABS: ETHYL ALCOHOL (ETHANOL) < 0.003 % (0.000-0.010)
[2023-03-12 19:06] LABS: ALBUMIN 3.1 G/DL (3.2-5.2); ALKALINE PHOSPHATASE 97 U/L (46-116); ALT/SGPT 28 U/L (7.0-40); AST/SGOT 16 U/L (<34); BILIRUBIN,DIRECT 0.1 MG/DL (<0.4); BILIRUBIN,TOTAL 0.4 MG/DL (0.3-1.2); BLOOD UREA NITROGEN 14 MG/DL (9-23); CALCIUM LEVEL 9.1 MG/DL (8.3-10.6); CARBON DIOXIDE LEVEL 26 MMOL/L (20-31); CHLORIDE LEVEL 97 MMOL/L (98-107); CPK CREATINE PHOSPHOKINASE 47 U/L (34-145); CREATININE FOR GFR 0.66 MG/DL (0.55-1.30); GLOMERULAR FILTRATION RATE > 60.0 (>45); GLUCOSE, FASTING 241 MG/DL (74-106); MB/CK RELATIVE INDEX 2.12 (< OR =4); POTASSIUM SERUM 4.3 MMOL/L (3.5-5.1); SODIUM LEVEL 131 MMOL/L (136-145); TOTAL PROTEIN 6.5 G/DL (5.7-8.2)
[2023-03-12 19:07] LABS: THYROID STIMULATING HORMONE 10.738 uIU/ML (0.55-4.78)
[2023-03-12 19:09] LABS: RSV AMPLIFICATION NEGATIVE (NEGATIVE)
[2023-03-12] MEDS ORDERED: DIVA250T67 PO (19:46)
[2023-03-12] MEDS ORDERED: ENAL1TAB52 PO ×2 (19:46→19:58)
[2023-03-12] MEDS ORDERED: CLON1TAB8 PO (19:46)
[2023-03-12] MEDS ORDERED: ATOR80TA59 PO (19:46)
[2023-03-12] MEDS ORDERED: FURO40TA2 PO (19:55)
[2023-03-12] MEDS ORDERED: LEVO137T2 PO (19:55)
[2023-03-12] MEDS ORDERED: ENAL1TAB50 PO (19:55)
[2023-03-12] MEDS ORDERED: SPIR50TA4 PO (19:55)
[2023-03-12] MEDS ORDERED: HOME MED LIST COMPLETE! XX SCH (20:00)
[2023-03-12] MEDS ORDERED: INSULIN LISPRO (NovoLOG) PER UNIT SC SCH (21:00)
[2023-03-12 21:28] LABS: FREE T4 1.34 NG/DL (0.89-1.76)
[2023-03-12 21:33] LABS: PROCALCITONIN <0.04 ng/ml
[2023-03-12] MEDS ORDERED: clonazePAM 1 MG TAB PO PRN (22:10)
[2023-03-12] MEDS ORDERED: GLUCAGON INJ 1MG VIAL SC PRN (22:10)
[2023-03-12] MEDS ORDERED: GLUCOSE 4GM CHEW TABLET PO PRN (22:10)
[2023-03-12] MEDS ORDERED: DEXTROSE 50% 50ML SYRINGE IV PRN (22:10)
[2023-03-12 23:34] VITALS: BP 149/63; TEMP 97.7; O2SAT 98
[2023-03-13 05:55] LABS: BASO # 0.1 10^3/uL (0.0-0.2); BASO % 0.7 % (0.0-1.0); EOS # 1.5 10^3/uL (0.0-0.5); EOS % 11.6 % (0.0-3.0); HEMATOCRIT 29.8 % (36.0-47.0); HEMOGLOBIN 9.8 g/dl (12.0-15.5); LYMPH # 3.2 10^3/uL (1.5-5.0); MEAN CORPUSCULAR HEMOGLOBIN 28.2 pg (27.0-33.0); MEAN CORPUSCULAR HGB CONC 32.9 g/dl (32.0-36.5); MEAN CORPUSCULAR VOLUME 85.6 fl (80.0-96.0); MONO # 1.2 10^3/uL (0.0-0.8); MONO % 9.1 % (2.0-8.0); NEUTROPHILS # 6.8 10^3/uL (1.5-8.5); PLATELET COUNT, AUTOMATED 472 10^3/uL (150-450); RED BLOOD COUNT 3.48 10^6/uL (4.00-5.40); WHITE BLOOD COUNT 12.9 10^3/uL (4.0-10.0)
[2023-03-13 06:00] VITALS: BP_SYST 129; BP_SYST 133; BP_DIAS 57; BP_DIAS 74; TEMP 97.3; O2SAT 97; O2SAT 98
[2023-03-13] MEDS ORDERED: LEVOTHYROXINE 137MCG TABLET (0.137MG) PO SCH (06:00)
[2023-03-13 06:21] LABS: ALBUMIN 2.6 G/DL (3.2-5.2); ALKALINE PHOSPHATASE 77 U/L (46-116); ALT/SGPT < 9 U/L (7.0-40); AST/SGOT 15 U/L (<34); BILIRUBIN,TOTAL 0.5 MG/DL (0.3-1.2); BLOOD UREA NITROGEN 12 MG/DL (9-23); CALCIUM LEVEL 8.1 MG/DL (8.3-10.6); CARBON DIOXIDE LEVEL 26 MMOL/L (20-31); CHLORIDE LEVEL 97 MMOL/L (98-107); CREATININE FOR GFR 0.56 MG/DL (0.55-1.30); GLOMERULAR FILTRATION RATE > 60.0 (>45); GLUCOSE, FASTING 188 MG/DL (74-106); MAGNESIUM LEVEL 1.7 MG/DL (1.8-2.4); POTASSIUM SERUM 4.1 MMOL/L (3.5-5.1); SODIUM LEVEL 131 MMOL/L (136-145); TOTAL PROTEIN 5.4 G/DL (5.7-8.2)
[2023-03-13] MEDS: INSULIN LISPRO (NovoLOG) PER UNIT SC SCH ×2 (08:41→12:23)
[2023-03-13 08:43] VITALS: BP 135/67
[2023-03-13] MEDS ORDERED: DIVALPROEX 250MG TAB PO SCH (09:00)
[2023-03-13] MEDS ORDERED: METOPROLOL TART 25 MG TABLET PO SCH (09:00)
[2023-03-13] MEDS ORDERED: APIXABAN 2.5 MG TAB (ELIQUIS) PO SCH (09:00)
[2023-03-13] MEDS ORDERED: ASPIRIN 81MG ENTERIC TABLET PO SCH (09:00)
[2023-03-13] MEDS ORDERED: FUROSEMIDE 40 MG TAB PO SCH (09:00)
[2023-03-13] MEDS ORDERED: PARoxetine 20MG TABLET PO SCH (09:00)
[2023-03-13] MEDS ORDERED: ENALAPRIL MALEATE 10 MG TAB PO SCH ×2 (09:00→21:00)
[2023-03-13] MEDS ORDERED: SPIRONOLACTONE 50 MG TAB PO SCH (09:00)
[2023-03-13] MEDS ORDERED: ATORVASTATIN 20 MG TAB PO SCH (09:00)
[2023-03-13] MEDS: MAG SULF 1GM/100ML (MAG RUN) 1 GM in IV 1 EA IV SCH ×2 (11:48→12:56)
[2023-03-13] MEDS ORDERED: MAGN400T2 PO (11:59)
[2023-03-13] MEDS ORDERED: LEVEMIR (INSULIN DETEMIR) 1 UNITS/0.01ML SC SCH (21:00)
[2023-03-13] MEDS ORDERED: MONTELUKAST 10 MG TAB PO SCH (21:00)
== END 2023-03-13 14:27 | disposition home or self-care (01) | DRG 93 ==
LOC: M ED 17:20 → M ED INP 20:53 → M MSPAV 23:34
PROVIDERS: ADMIT Family Medicine; ATTEND Internal Medicine
DX: R29.6 Repeated falls (principal); I10 Essential (primary) hypertension; F32.A Depression, unspecified; F41.9 Anxiety disorder, unspecified; J45.909 Unspecified asthma, uncomplicated; G40.909 Epilepsy, unspecified, not intractable, without status epilepticus; E11.9 Type 2 diabetes mellitus without complications; Z79.4 Long term (current) use of insulin; D72.829 Elevated white blood cell count, unspecified; I25.2 Old myocardial infarction; Z95.1 Presence of aortocoronary bypass graft; F39 Unspecified mood [affective] disorder; R26.89 Other abnormalities of gait and mobility; R53.1 Weakness; Z86.73 Personal history of transient ischemic attack (TIA), and cerebral infarction without residual deficits; E03.9 Hypothyroidism, unspecified; M19.90 Unspecified osteoarthritis, unspecified site; M06.9 Rheumatoid arthritis, unspecified; Z91.040 Latex allergy status; Z88.8 Allergy status to other drugs, medicaments and biological substances; Z79.899 Other long term (current) drug therapy; Z79.82 Long term (current) use of aspirin

== ENCOUNTER → 2023-05-25 | Outpatient (CLI) | payer MEDICARE ==
[~2023-05-25] MED LIST changes: +ATOR80TA59 PO; +CLON1TAB8 PO; +ELIQ2.5T PO; +ENAL1TAB50 PO; +FURO40TA2 PO; +MAGN400T2 PO; +SPIR50TA4 PO
[2023-05-25 11:24] LABS: BASO # 0.1 10^3/uL (0.0-0.2); BASO % 0.8 % (0.0-1.0); EOS # 0.3 10^3/uL (0.0-0.5); EOS % 3.1 % (0.0-3.0); HEMATOCRIT 38.7 % (36.0-47.0); HEMOGLOBIN 12.2 g/dl (12.0-15.5); LYMPH # 2.1 10^3/uL (1.5-5.0); LYMPH % 19.8 % (24.0-44.0); MEAN CORPUSCULAR HEMOGLOBIN 25.1 pg (27.0-33.0); MEAN CORPUSCULAR HGB CONC 31.5 g/dl (32.0-36.5); MEAN CORPUSCULAR VOLUME 79.6 fl (80.0-96.0); MONO # 0.8 10^3/uL (0.0-0.8); MONO % 7.5 % (2.0-8.0); NEUTROPHILS # 7.2 10^3/uL (1.5-8.5); NEUTROPHILS % 68.1 % (36.0-66.0); PLATELET COUNT, AUTOMATED 418 10^3/uL (150-450); RED BLOOD COUNT 4.86 10^6/uL (4.00-5.40); WHITE BLOOD COUNT 10.5 10^3/uL (4.0-10.0)
[2023-05-25 11:59] LABS: THYROID STIMULATING HORMONE 0.136 uIU/ML (0.55-4.78)
[2023-05-25 12:01] LABS: C REACTIVE PROTEIN QUANTITATIV < 0.40 MG/DL (<1.0)
[2023-05-25 12:07] LABS: ALKALINE PHOSPHATASE 86 U/L (46-116); ALT/SGPT 28 U/L (7.0-40); AST/SGOT 20 U/L (<34); BILIRUBIN,TOTAL 0.5 MG/DL (0.3-1.2); BLOOD UREA NITROGEN 11 MG/DL (9-23); CALCIUM LEVEL 8.7 MG/DL (8.3-10.6); CARBON DIOXIDE LEVEL 29 MMOL/L (20-31); CHLORIDE LEVEL 99 MMOL/L (98-107); CHOLESTEROL LEVEL 121 MG/DL (<200); CHOLESTEROL RISK RATIO 4.49 (<5); GLOMERULAR FILTRATION RATE > 60.0 (>45); GLUCOSE, FASTING 198 MG/DL (74-106); HDL CHOLESTEROL 26.9 MG/DL (>40); LDL CHOLESTEROL 63.9 MG/DL (<100); NON-HDL-C 94.1 MG/DL; POTASSIUM SERUM 4.5 MMOL/L (3.5-5.1); SODIUM LEVEL 134 MMOL/L (136-145); TOTAL PROTEIN 6.3 G/DL (5.7-8.2); TRIGLYCERIDES LEVEL 151 MG/DL (<150)
[2023-05-25 13:58] LABS: MAGNESIUM LEVEL 1.7 MG/DL (1.8-2.4)
== END ==
LOC: M LAB 11:01
PROVIDERS: ATTEND Internal Medicine Cardiovascular Disease
DX: I50.32 Chronic diastolic (congestive) heart failure (principal); I11.0 Hypertensive heart disease with heart failure; I35.8 Other nonrheumatic aortic valve disorders; I48.0 Paroxysmal atrial fibrillation; R06.02 Shortness of breath; E03.9 Hypothyroidism, unspecified; Z79.01 Long term (current) use of anticoagulants

== ENCOUNTER → 2023-06-23 | Outpatient (CLI) | payer MEDICARE | LOC: M SLEEP HO 10:57 | PROVIDERS: ATTEND Internal Medicine Cardiovascular Disease | DX: I27.23 Pulmonary hypertension due to lung diseases and hypoxia (principal); G47.30 Sleep apnea, unspecified ==

== ENCOUNTER → 2024-06-21 | Outpatient (CLI) | payer MEDICARE ==
[~2024-06-21] MED LIST changes: -ASPI-161 PO; +ASPI-615 PO
[2024-06-21 16:58] LABS: HEMATOCRIT 36.8 % (36.0-47.0); HEMOGLOBIN 12.2 g/dl (12.0-15.5); MEAN CORPUSCULAR HEMOGLOBIN 26.5 pg (27.0-33.0); MEAN CORPUSCULAR HGB CONC 33.2 g/dl (32.0-36.5); PLATELET COUNT, AUTOMATED 450 10^3/uL (150-450)
[2024-06-21 17:24] LABS: THYROID STIMULATING HORMONE 0.108 uIU/ML (0.55-4.78)
[2024-06-21 17:26] LABS: ALBUMIN 3.7 G/DL (3.2-5.2); ALKALINE PHOSPHATASE 83 U/L (46-116); ALT/SGPT 25 U/L (7.0-40); AST/SGOT 20 U/L (<34); BILIRUBIN,TOTAL 0.7 MG/DL (0.3-1.2); BLOOD UREA NITROGEN 17 MG/DL (9-23); CALCIUM LEVEL 9.6 MG/DL (8.3-10.6); CARBON DIOXIDE LEVEL 27 MMOL/L (20-31); CHLORIDE LEVEL 91 MMOL/L (98-107); CHOLESTEROL LEVEL 131 MG/DL (<200); CHOLESTEROL RISK RATIO 3.86 (<5); CREATININE FOR GFR 0.69 MG/DL (0.55-1.30); CREATININE, URINE 18.6 MG/DL; GLOMERULAR FILTRATION RATE > 60.0 (>39); GLUCOSE, FASTING 112 MG/DL (74-106); HDL CHOLESTEROL 33.9 MG/DL (>40); LDL CHOLESTEROL 79.1 MG/DL (<100); MAGNESIUM LEVEL 1.9 MG/DL (1.8-2.4); MALB URINE SIEMENS < 3.0 MG/L; MAU/CREAT RATIO 16.1 MCG/MG (0.0-30.0); NON-HDL-C 97.1 MG/DL; POTASSIUM SERUM 5.3 MMOL/L (3.5-5.1); SODIUM LEVEL 124 MMOL/L (136-145); TOTAL PROTEIN 7.1 G/DL (5.7-8.2); TRIGLYCERIDES LEVEL 90 MG/DL (<150)
[2024-06-22 06:46] LABS: WHITE BLOOD COUNT 12.8 10^3/uL (4.0-10.0)
== END ==
LOC: M WUC 14:47
PROVIDERS: ATTEND Family Medicine
DX: I10 Essential (primary) hypertension (principal); I25.10 Atherosclerotic heart disease of native coronary artery without angina pectoris; E11.65 Type 2 diabetes mellitus with hyperglycemia

== ENCOUNTER → 2024-07-12 | Outpatient (CLI) | payer MEDICARE ==
[2024-07-12 16:56] LABS: BLOOD UREA NITROGEN 14 MG/DL (9-23); CALCIUM LEVEL 9.1 MG/DL (8.3-10.6); CARBON DIOXIDE LEVEL 28 MMOL/L (20-31); CHLORIDE LEVEL 94 MMOL/L (98-107); CREATININE FOR GFR 0.68 MG/DL (0.55-1.30); GLOMERULAR FILTRATION RATE > 60.0 (>39); POTASSIUM SERUM 4.7 MMOL/L (3.5-5.1); SODIUM LEVEL 127 MMOL/L (136-145)
[2024-07-13 07:18] LABS: GLUCOSE, FASTING 109 MG/DL (74-106)
== END ==
LOC: M WUC 13:51
PROVIDERS: ATTEND Family Medicine
DX: E87.1 Hypo-osmolality and hyponatremia (principal)

== ENCOUNTER → 2025-01-10 | Outpatient (CLI) | payer MEDICARE ==
[~2025-01-10] MED LIST changes: -AMBI10TA PO; -PRED50TA PO; +PRED50TA57 PO; +ZOLP-533 PO
[2025-01-10 18:49] LABS: BASO # 0.1 10^3/uL (0.0-0.2); BASO % 0.5 % (0.0-1.0); EOS # 0.1 10^3/uL (0.0-0.5); EOS % 0.8 % (0.0-3.0); HEMATOCRIT 34.6 % (36.0-47.0); HEMOGLOBIN 11.3 g/dl (12.0-15.5); LYMPH # 2.6 10^3/uL (1.5-5.0); LYMPH % 16.7 % (24.0-44.0); MEAN CORPUSCULAR HEMOGLOBIN 27.4 pg (27.0-33.0); MEAN CORPUSCULAR HGB CONC 32.7 g/dl (32.0-36.5); MEAN CORPUSCULAR VOLUME 83.8 fl (80.0-96.0); MONO # 1.2 10^3/uL (0.0-0.8); MONO % 7.5 % (2.0-8.0); NEUTROPHILS # 11.4 10^3/uL (1.5-8.5); NEUTROPHILS % 73.2 % (36.0-66.0); PLATELET COUNT, AUTOMATED 491 10^3/uL (150-450); RED BLOOD COUNT 4.13 10^6/uL (4.00-5.40)
[2025-01-10 18:51] LABS: ALBUMIN 3.8 G/DL (3.2-5.2); ALKALINE PHOSPHATASE 93 U/L (35-104); ALT/SGPT 29 U/L (7.0-40); AST/SGOT 20 U/L (<34); BILIRUBIN,TOTAL 0.9 MG/DL (0.3-1.2); BLOOD UREA NITROGEN 9 MG/DL (9-23); CALCIUM LEVEL 9.4 MG/DL (8.3-10.6); CARBON DIOXIDE LEVEL 26 MMOL/L (20-31); CHLORIDE LEVEL 92 MMOL/L (98-107); CHOLESTEROL LEVEL 114 MG/DL (<200); CHOLESTEROL RISK RATIO 2.89 (<5); CREATININE FOR GFR 0.62 MG/DL (0.55-1.30); GLOMERULAR FILTRATION RATE > 90.0 (>39); GLUCOSE, FASTING 138 MG/DL (74-106); HDL CHOLESTEROL 39.4 MG/DL (>40); LDL CHOLESTEROL 61.8 MG/DL (<100); NON-HDL-C 74.6 MG/DL; POTASSIUM SERUM 4.9 MMOL/L (3.5-5.1); SODIUM LEVEL 128 MMOL/L (136-145); TRIGLYCERIDES LEVEL 64 MG/DL (<150)
[2025-01-10 18:54] LABS: FREE T4 1.58 NG/DL (0.89-1.76); THYROID STIMULATING HORMONE 0.112 uIU/ML (0.55-4.78)
[2025-01-10 19:13] LABS: HEMOGLOBIN A1c 6.2 % (4.0-6.0)
[2025-01-11 11:43] LABS: WHITE BLOOD COUNT 15.6 10^3/uL (4.0-10.0)
== END ==
LOC: M WUC 15:15
PROVIDERS: ATTEND Family Medicine
DX: I10 Essential (primary) hypertension (principal); I25.10 Atherosclerotic heart disease of native coronary artery without angina pectoris; E11.65 Type 2 diabetes mellitus with hyperglycemia

== ENCOUNTER → 2025-05-21 | Outpatient (CLI) | payer MEDICARE ==
[~2025-05-21] MED LIST changes: +DEPA250T PO; +DIVA-41 PO; +METF-838 PO; +NOVOINJ3 SC; +NOVOINJ3 SQ; +OXYC-141 PO; +OXYC1CAP2 PO; -PRAV10TA3; -PRAV10TA3 PO; +PRAV10TA43; +PRAV10TA43 PO; +TRES1INJ SQ; -TRES1INJ SUBQ
[2025-05-21 15:55] LABS: ALT/SGPT 16 U/L (7.0-40); AST/SGOT 17 U/L (<34); BASO # 0.1 10^3/uL (0.0-0.2); BASO % 0.7 % (0.0-1.0); CALCIUM LEVEL 8.8 MG/DL (8.3-10.6); CARBON DIOXIDE LEVEL 28 MMOL/L (20-31); CHLORIDE LEVEL 96 MMOL/L (98-107); CHOLESTEROL LEVEL 126 MG/DL (<200); CHOLESTEROL RISK RATIO 3.50 (<5); CREATININE FOR GFR 0.61 MG/DL (0.55-1.30); EOS # 0.3 10^3/uL (0.0-0.5); EOS % 3.1 % (0.0-3.0); GLOMERULAR FILTRATION RATE > 90.0 (>39); LDL CHOLESTEROL 70.3 MG/DL (<100); LYMPH # 2.4 10^3/uL (1.5-5.0); LYMPH % 21.9 % (24.0-44.0); MAGNESIUM LEVEL 1.6 MG/DL (1.8-2.4); MONO # 1.1 10^3/uL (0.0-0.8); MONO % 10.0 % (2.0-8.0); NEUTROPHILS # 6.9 10^3/uL (1.5-8.5); NEUTROPHILS % 62.3 % (36.0-66.0); NON-HDL-C 90.1 MG/DL; PLATELET COUNT, AUTOMATED 298 10^3/uL (150-450); POTASSIUM SERUM 4.5 MMOL/L (3.5-5.1); SODIUM LEVEL 133 MMOL/L (136-145); TRIGLYCERIDES LEVEL 99 MG/DL (<150)
[2025-05-21 16:04] LABS: ESTIMATED AVERAGE GLUCOSE 143.0 MG/DL (60-110)
== END ==
LOC: M WUC 11:34
PROVIDERS: ATTEND Family Medicine
DX: I10 Essential (primary) hypertension (principal); I25.10 Atherosclerotic heart disease of native coronary artery without angina pectoris; M25.552 Pain in left hip; M54.50 Low back pain, unspecified; E78.5 Hyperlipidemia, unspecified; E03.9 Hypothyroidism, unspecified; E83.42 Hypomagnesemia; M16.12 Unilateral primary osteoarthritis, left hip; M47.816 Spondylosis without myelopathy or radiculopathy, lumbar region; E11.65 Type 2 diabetes mellitus with hyperglycemia